=== PATIENT | male | born 1985 | race Two or more races ===

== ENCOUNTER 2021-06-27 07:05 | Outpatient (CLI) | payer OTHER | END 2021-06-27 07:19 | disposition home or self-care (01) | LOC: SONOGRAMA 07:05 → MAMO-SONO 07:15 → SONOGRAMA 07:19 → MAMO-SONO 07:45 | PROVIDERS: ATTEND General Practice | DX: N50.82 Scrotal pain (principal); R10.84 Generalized abdominal pain; N50.89 Other specified disorders of the male genital organs ==

== ENCOUNTER 2022-04-28 09:09 | Outpatient (CLI) | payer OTHER | END 2022-04-28 09:27 | disposition home or self-care (01) | LOC: MRI 09:09 | PROVIDERS: ATTEND General Practice | DX: N50.819 Testicular pain, unspecified (principal); M25.561 Pain in right knee; R05.9 Cough, unspecified | CPT/HCPCS: 73718 ==

== ENCOUNTER 2023-11-20 21:08 | Emergency (ER) | payer OTHER ==
[~2023-11-20] VITALS: Ht 185.4 cm; Wt 92.5 kg
[~2023-11-20 21:08] MED LIST: NABUMETONE750 MG PO
[2023-11-21 09:00] LABS: HEMATOCRIT 45.7 % (39.0-48.0); HEMOGLOBIN 15.5 g/dL (13-16.00); MEAN CELL VOLUME 89.5 fL (80.0-100.00); MEAN CORPUSCULAR HEMOGLOBIN 30.3 pg (27.00-32.0); MEAN CORPUSCULAR HGB CONC 33.9 g/dl (32.0-36.0); PLATELET COUNT 219 K/uL (150-450); RED CELL DISTRIBUTION WIDTH 12.8 % (11.5-14.5)
[2023-11-21 09:29] LABS: INR 1.03; PROTHROMBIN TIME 10.8 SECONDS (9.0-11.5)
[2023-11-21 09:31] LABS: CALCIUM 9.4 mg/dL (8.5-10.1); CREATININE SERUM 0.98 mg/dL (0.70-1.30); GFR 84.71; POTASSIUM 3.65 mEq/L (3.5-5.1)
[2023-11-21 09:45] LABS: URINE APPEARANCE Clear; URINE BILIRRUBIN Negative (NEGATIVE); URINE BLOOD Negative; URINE COLOR Yellow; URINE GLUCOSE Negative (NEGATIVE); URINE LEUKOCYTE Negative; URINE NITRATE Negative; URINE PROTEIN Negative (NEGATIVE)
[2023-11-21 09:49] LABS: URINE BACTERIA 16.3 uL (0.0-1933); URINE EPITHELIAL CELLS 6.4 uL (0.0-38.8); URINE RBC 12.3 uL (0.0-20.8); URINE WBC 11.1 uL (0.0-23.2)
[2023-11-21 13:01] LABS: ABG PH 7.406 (7.35-7.45); ABG PO2 89.9 mmHg (80-100); ABG pCO2 40.7 mmHg (35-45); BASE EXCESS 0.3 mmol/l; BICARBONATE 25 mmol/l (23-25); Tco2 26.3 mmol/l; allen test SATISFACTORY; o2 21 %; puncture site RADIAL LEFT
== END 2023-11-21 13:03 | disposition home or self-care (01) ==
LOC: ER 21:09
PROVIDERS: General Practice
DX: S43.101A Unspecified dislocation of right acromioclavicular joint, initial encounter (principal); V87.8XXA Person injured in other specified noncollision transport accidents involving motor vehicle (traffic), initial encounter; Y93.9 Activity, unspecified; Y92.9 Unspecified place or not applicable; Y99.9 Unspecified external cause status; S22.31XA Fracture of one rib, right side, initial encounter for closed fracture